=== PATIENT | female | born 1975 | race Caucasian/White ===

== ENCOUNTER 2024-08-14 10:00 | Emergency (ER) | payer OTHER ==
[2024-08-14] MEDS ORDERED: Ondansetron PF 4 MG/2 ML Vial ONE (10:15)
[2024-08-14] MEDS ORDERED: Famotidine/PF 20 mg/2ml Vial ONE (10:16)
[2024-08-14] MEDS ORDERED: Acetaminophen 325 MG TAB ONE (10:16)
[2024-08-14 11:06] LABS: #Basophils 0.04 10x3/uL (0.0-0.2); #Eosinophils 0.12 10x3/uL (0.0-0.5); #Monocytes 0.59 10x3/uL (0.0-1.1); #Neutrophils 2.57 10x3/uL (1.5-8.4); %Basophils 0.8 % (0.0-2.0); %Eosinophils 2.4 % (0.0-6.0); %Lymphocytes 32.7 % (18.0-47.0); %Monocytes 11.9 % (0.0-10.0); Hematocrit 36.8 % (34.9-44.5); Mean Corpuscular HGB CONC 32.6 g/dL (32.0-36.0); Mean Corpuscular Hemoglobin 33.4 pg (27.0-33.0); Mean Corpuscular Volume 102.5 fL (81.6-98.3); Mean Platelet Volume 10.3 fL (7.4-10.4); Platelet Count 135 10x3/uL (150-450); Red Blood Cell (RBC) Count 3.59 10x6/uL (3.90-5.03); White Blood Cell (WBC) Count 4.95 10x3/uL (3.5-10.5)
[2024-08-14 11:20] LABS: ALT (SGPT) 80 U/L (Less than 34); AST (SGOT) 65 U/L (11-34); Albumin 4.2 g/dL (3.1-4.5); Alkaline Phosphatase 92 U/L (40-110); Anion Gap 16 mmol/L (10-20); BUN (Urea Nitrogen) 14 mg/dL (9.8-20.1); Bilirubin, Total 0.9 mg/dL (0.3-1.2); Calc. Creatinine Clearance 0 mL/min (70-130); Calcium 8.9 mg/dL (7.8-10.44); Carbon Dioxide 22 mmol/L (22-29); Chloride 108 mmol/L (98-107); Estimated GFR 101; Globulin 2.2 g/dL (2.4-3.5); Lipase 16 U/L (8-78); Potassium 3.7 mmol/L (3.5-5.1); Protein, Total 6.4 g/dL (6.0-8.3); Sodium 142 mmol/L (136-145)
[2024-08-14 11:21] LABS: Troponin I Less than 0.010 ng/mL (< 0.028)
[2024-08-14] MEDS ORDERED: Iopamidol 300 61% 100 ML VIAL FS ONE (11:28)
[2024-08-14 11:29] LABS: Critical Call Chemistry SJOS.OD @ 1129 NS1; Glucose 46 mg/dL (70-105)
[2024-08-14] MEDS ORDERED: Morphine 2 MG/ML VIAL ONE (12:43)
[2024-08-14 14:04] LABS: Troponin I Less than 0.010 ng/mL (< 0.028)
== END 2024-08-14 14:31 | disposition home or self-care (01) ==
LOC: CSHERS 10:00
DX: R07.2 Precordial pain (principal); E16.2 Hypoglycemia, unspecified
CPT/HCPCS: 36415; 36416; 71045; 74177; 80053; 83690; 84484; 85025; 93005; 96374; 96375; J2272; J2405; J3490; Q9967